=== PATIENT | male | born 1965 | race Two or more races ===

== ENCOUNTER 2020-12-23 20:23 | Emergency (ER) | payer OTHER ==
[~2020-12-23] VITALS: Ht 177.8 cm; Wt 84.0 kg
[2020-12-23 20:38] VITALS: BP 120/76
[2020-12-23] MEDS ORDERED: IBUPROFEN 600MG TABLET PO ONE (21:00)
[2020-12-23] MEDS ORDERED: TETANUS, DIPHTHERIA, PERTUSSIS VAC/PF 0.5ML (>7YR OLD) IM ONE (21:45)
== END 2020-12-23 23:21 | disposition home or self-care (01) ==
LOC: ER 20:23
DX: S61.211A Laceration without foreign body of left index finger without damage to nail, initial encounter (principal); W54.0XXA Bitten by dog, initial encounter; Y93.89 Activity, other specified; Y92.488 Other paved roadways as the place of occurrence of the external cause
CPT/HCPCS: 12001; 90471; 90715; 99283; Z7610